=== PATIENT | male | born 1955 | race Caucasian/White ===

== ENCOUNTER → 2020-07-17 | Day surgery (SDC) | payer MEDICARE, OTHER ==
[~2020-07-17] MED LIST: AMLODIPINE BESYL5 MG PO; ASPIRIN EC81 MG PO; ATORVASTATIN CA80 MG PO; FAMOTIDINE40 MG PO; FEROSUL325 MG PO; FLUOXETINE HCL40 MG PO; HUMALOG MI100 UNIT/3 SQ; JARDIANCE25 MG PO; LEVEMIR FL100 UNIT/1 SQ; METOPROLOL SUCC25 MG PO; ZYLOPRIM 100 M100 MG PO
== END | disposition home or self-care (01) ==
LOC: OR 06:27
DX: C18.4 Malignant neoplasm of transverse colon (principal); K26.9 Duodenal ulcer, unspecified as acute or chronic, without hemorrhage or perforation; K22.70 Barrett's esophagus without dysplasia; K21.00 Gastro-esophageal reflux disease with esophagitis, without bleeding; K29.80 Duodenitis without bleeding; K64.1 Second degree hemorrhoids; D50.9 Iron deficiency anemia, unspecified; E11.9 Type 2 diabetes mellitus without complications; I10 Essential (primary) hypertension; E78.00 Pure hypercholesterolemia, unspecified; Z79.4 Long term (current) use of insulin; E66.9 Obesity, unspecified; Z68.30 Body mass index [BMI] 30.0-30.9, adult; I48.91 Unspecified atrial fibrillation
CPT/HCPCS: 82962; J2704; J7040

== ENCOUNTER 2021-06-05 18:21 | Emergency (ER) | payer MEDICARE ==
[2021-06-05 19:05] LABS: HEMOGLOBIN 14.5 gm/dl (14.0-17.5); RED BLOOD COUNT 5.04 M/UL (4.20-5.50); WHITE BLOOD COUNT 9.1 K/UL (4.5-11.0)
[2021-06-05 19:40] LABS: BUN/CREATININE RATIO 16 (0-10)
[2021-06-05] MEDS ORDERED: MOBIC15 MG PO (22:24)
[2021-06-05] MEDS ORDERED: ONDANSETRON ODT4 MG SL (22:24)
== END 2021-06-05 23:03 | disposition home or self-care (01) ==
LOC: ER1 18:21
PROVIDERS: Physician Assistant
DX: R10.9 Unspecified abdominal pain (principal); E11.9 Type 2 diabetes mellitus without complications; E78.5 Hyperlipidemia, unspecified; I10 Essential (primary) hypertension; Z85.038 Personal history of other malignant neoplasm of large intestine; Z79.84 Long term (current) use of oral hypoglycemic drugs
CPT/HCPCS: 80053; 81001; 83605; 83690; 85025; 86850; 86900; 86901; 99284; Q9967